=== PATIENT | female | born 1985 | race Caucasian/White ===

== ENCOUNTER → 2023-12-31 11:53 | Outpatient (REF) | payer BC, SELFPAY | LOC: MRI 3T 11:53 | PROVIDERS: ATTENDING PHYSICIAN Nurse Practitioner Family; FAMILY PHYSICIAN Family Medicine | DX: R92.30 Dense breasts, unspecified (principal); Z80.3 Family history of malignant neoplasm of breast | CPT/HCPCS: 77049; A9585 ==

== ENCOUNTER 2024-10-29 17:40 | Emergency (ER) | payer BC, SELFPAY ==
[2024-10-29 17:46] VITALS: BP 139/95
--- NOTE | 2024-10-29 17:46 | ED.GENMED ---
ED Provider Triage
<Vlad Couch PA-C - Last Filed: 10/29/24 17:52>
-
Patient seen by provider in Triage?: Seen in Triage
Attestation: A medical screening examination has been initiated by a qualified medical provider. Based on the assessment performed at this time, it has been determined that an emergent medical condition may exist and the patient has been informed
that further medical evaluation and possible additional diagnostic testing may be needed.
HPI: 39-year-old female presenting to the ER with a little over 1 week of pain to her right groin area that worsens with hip flexion as well as abduction and ambulating. Patient went to urgent care and was recommended to come to the ER for further
evaluation. Pain worse last night and patient did note some swelling to the right lower extremity. Notes no specific injury but does state about 2 days prior she had been doing lunges at the gym and is not sure if this is related. Ultrasound of
the right lower extremity ordered to exclude DVT.
GENERAL: Alert , in no apparent distress
EYE: No visual abnormalities.
NECK: Trachea midline
ENT: No visible abnormalities.
LUNGS: No acute respiratory distress
NEUROLOGICAL: Alert and oriented
SKIN: Skin intact. No visible changes.
MUSCULOSKELETAL: Moving extremities normally
PSYCH: Normal and appropriate interaction.
This is a medical evaluation conducted in person to initiate diagnostic evaluation and provide initial therapeutics. Please see further documentation by the treating clinician.
History of Present Illness
<Vlad Couch PA-C - Last Filed: 10/29/24 17:52>
General
Chief Complaint: Musculo-Skeletal Complaint
Time Seen by Provider: 10/29/24 22:44
<Manda Peña PA-C - Last Filed: 11/01/24 13:00>
General
Source: patient
Exam Limitations: none
Nursing documentation reviewed up to this point in time: agreed with
History of Present Illness
History of Present Illness:
PT IS A 39 Y/O F
healthy
says about 10 days ago she was at the gym and was doing lunges, but didn't have pain, just felt a little sore afterwards
then about 24 hours later started having more signfiicant pain in R inguinal region and around to buttocks
she was able to walk and would take motrin and pain would get better
as the week went on she seemed to get worse but in the past 2 days significantly worse and with swelling in the leg that developed ajit in the R thigh
there is no color change,numbness, tlngling
no back pain, weakness
but pt is unable to actively flex the R leg and cannot plant her foot down due to severe pain
concerned about taking anything more than motrin
Past History
<Vlad Couch PA-C - Last Filed: 10/29/24 17:52>
Past History
ED Past Medical History: Other (History ADHD, urinary tract infection)
ED Past Surgical History: None
Social History
Tobacco: Non-smoker
Alcohol: Occasional
Drug: None
Personal:
Living: with family
Employment: Not employed
Family History
Family History: Other (Noncontributory)
Review of Systems
<Manda Peña PA-C - Last Filed: 11/01/24 13:00>
Review of Systems
Allergies reviewed?: Yes
All Other Systems: Not applicable
Phy Exam
<Manda Peña PA-C - Last Filed: 11/01/24 13:00>
Physical Exam
Physical Exam:
GENERAL: Alert , in no apparent distress, comfortable at rest
HEAD: NCAT
CV: 2+ DP PULSES B/L
regular rate/rhythm
normal femoral and dp pulses;
perfused R leg
NEUROLOGICAL: Alert and oriented, no focal neuro deficits, , 5/5 strength, sensation intact, ambulation slight limp right leg
SKIN: Warm and dry, no color change
even in the R thigh that is moderately swollen there is no ecchymosis or color change
MUSCULOSKELETAL: nontender palpation to R inguinal region, right thigh, right knee right lower leg
unable to actively flex her R hip
PSYCH: Normal and appropriate interaction.
Course
<Vlad Couch PA-C - Last Filed: 10/29/24 17:52>
Orders/Labs/Results
Orders:
Orders
10/29/24 17:47
US Periph Venous LOWER Ext RT Urgent
Comment:
Reason For Exam: pain/swelling
10/29/24 23:15
HYDROmorphone [Dilaudid] 0.25 mg IV NOW STA
10/29/24 23:16
Test Result ONCE
10/29/24 23:32
Complete Blood Count/With Diff Urgent
Comprehensive Metabolic Panel Urgent
HCG, Serum Qualitative Screen Urgent
10/30/24 00:03
CT Lower Ext Angio W/wo Iv Con Urgent
Reason For Exam: severe R inguinal pain with swelling R thigh;
10/30/24 01:55
Knee Immobilizer Right-Treatme ONCE
Abnormal Lab Results
10/29/24
23:32
RBC 4.17 L 10^6/uL
(4.20-5.40)
Hct 36.9 L %
(37.0-47.0)
MPV 10.5 H fL
(7.4-10.4)
10/29/24 23:32
10/29/24 23:32
Vital Signs
Initial and Last Documented VS:
Initial Vital Signs
Temp Pulse Resp BP Pulse Ox
36.6 C 80 16 139/95 100
10/29/24 17:46 10/29/24 17:46 10/29/24 17:46 10/29/24 17:46 10/29/24 17:46
Last Documented Vital Signs
Temp Pulse Resp BP Pulse Ox
36.6 C 85 16 115/74 100
10/29/24 17:46 10/30/24 02:31 10/29/24 21:47 10/30/24 02:31 10/30/24 02:31
<Manda Peña PA-C - Last Filed: 11/01/24 13:00>
Orders/Labs/Results
Orders:
Orders
10/29/24 17:47
US Periph Venous LOWER Ext RT Urgent
Comment:
Reason For Exam: pain/swelling
10/29/24 23:15
HYDROmorphone [Dilaudid] 0.25 mg IV NOW STA
10/29/24 23:16
Test Result ONCE
10/29/24 23:32
Complete Blood Count/With Diff Urgent
Comprehensive Metabolic Panel Urgent
HCG, Serum Qualitative Screen Urgent
10/30/24 00:03
CT Lower Ext Angio W/wo Iv Con Urgent
Reason For Exam: severe R inguinal pain with swelling R thigh;
10/30/24 01:55
Knee Immobilizer Right-Treatme ONCE
Abnormal Lab Results
10/29/24
23:32
RBC 4.17 L 10^6/uL
(4.20-5.40)
Hct 36.9 L %
(37.0-47.0)
MPV 10.5 H fL
(7.4-10.4)
10/29/24 23:32
10/29/24 23:32
Vital Signs
Initial and Last Documented VS:
Initial Vital Signs
Temp Pulse Resp BP Pulse Ox
36.6 C 80 16 139/95 100
10/29/24 17:46 10/29/24 17:46 10/29/24 17:46 10/29/24 17:46 10/29/24 17:46
Last Documented Vital Signs
Temp Pulse Resp BP Pulse Ox
36.6 C 85 16 115/74 100
10/29/24 17:46 10/30/24 02:31 10/29/24 21:47 10/30/24 02:31 10/30/24 02:31
<Son Kelly, DO - Last Filed: 10/30/24 01:58>
Orders/Labs/Results
Orders:
Orders
10/29/24 17:47
US Periph Venous LOWER Ext RT Urgent
Comment:
Reason For Exam: pain/swelling
10/29/24 23:15
HYDROmorphone [Dilaudid] 0.25 mg IV NOW STA
10/29/24 23:16
Test Result ONCE
10/29/24 23:32
Complete Blood Count/With Diff Urgent
Comprehensive Metabolic Panel Urgent
HCG, Serum Qualitative Screen Urgent
10/30/24 00:03
CT Lower Ext Angio W/wo Iv Con Urgent
Reason For Exam: severe R inguinal pain with swelling R thigh;
10/30/24 01:55
Knee Immobilizer Right-Treatme ONCE
Abnormal Lab Results
10/29/24
23:32
RBC 4.17 L 10^6/uL
(4.20-5.40)
Hct 36.9 L %
(37.0-47.0)
MPV 10.5 H fL
(7.4-10.4)
10/29/24 23:32
10/29/24 23:32
Vital Signs
Initial and Last Documented VS:
Initial Vital Signs
Temp Pulse Resp BP Pulse Ox
36.6 C 80 16 139/95 100
10/29/24 17:46 10/29/24 17:46 10/29/24 17:46 10/29/24 17:46 10/29/24 17:46
Last Documented Vital Signs
Temp Pulse Resp BP Pulse Ox
36.6 C 85 16 115/74 100
10/29/24 17:46 10/30/24 02:31 10/29/24 21:47 10/30/24 02:31 10/30/24 02:31
<Manda Peña PA-C - Last Filed: 11/01/24 13:00>
MDM/Problems Addressed
Differential Diagnosis Includes:
inguinal strain, pulled muscle, torn quad, vascular injury
MDM/Problems Addressed:
39y/o F
gradual R inguinal pain
worse with movement
the past 2 days severe
cannot actively flex your
<Son Kelly, - Last Filed: 10/30/24 01:58>
Update Note
Update Note:
1:[address] without significant abnormality. Patient states feels comfortable going home. Discussed follow-up with orthopedics. Will write for pain medicine. She states she has crutches at home
ED Attending Note
<Vlad Couch PA-C - Last Filed: 10/29/24 17:52>
-
Portions of this chart may have been created with voice recognition software.� Occasional wrong word or��sound alike� substitutions may have occurred due to the inherent limitations of voice recognition software.
<Son Kelly, - Last Filed: 10/30/24 01:58>
ED Attending Note
Patient seen and examined by attending physician: Yes
I performed the substantive portion of visit, reviewed & personally made and approve the management plan that is documented in note by myself or NEAL.: Yes
ED Attending Note:
I have seen and evaluated the patient with a [id number] encounter. I have spoken to the advance practicer provider and involved in the medical history, the physical exam, medical decision making.
Evaluation and management service: agree unless noted differently below.
Results interpretation: agree unless noted differently below.
Focused HPI: 39-year-old female presenting with right thigh pain. Patient injured her thigh while she was at the gym. Since then, she has been having trouble walking and having trouble with hip flexion
Physical exam: Edema noted to right thigh without skin changes. Patient unable to flex hip. Distal extremity neurovascular intact
Medical Decision Making: We discussed likely quadricep tear at origin. Will obtain CT to rule out any active bleeding given the edema. Patient will ultimately require MRI and ortho eval
Discharge Plan
Departure
Patient Disposition: Home (Routine Discharge)
Date of Disposition: 10/30/24
Time of Disposition: :55
Patient with high blood pressure during this ER visit?: No
Discharge Problem:
Quadriceps muscle strain
Prescriptions:
New
diclofenac potassium 50 mg tablet
50 mg PO BID Qty: 20 0RF
oxycodone 5 mg tablet
5 mg PO Q8H PRN (Reason: Pain) Qty: 14 0RF
metaxalone 800 mg tablet
800 mg PO TID PRN (Reason: muscle pain) Qty: 14 0RF
No Action
Vyvanse 40 mg Capsule
40 mg PO DAILY
Patient Comments:
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
dextroamphetamine-amphetamine 10 mg tablet
10 mg PO DAILYPRN PRN (Reason: focus)
Patient Comments:
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
famotidine [Pepcid] 20 mg Tablet
20 mg PO DAILYPRN PRN (Reason: gerd)
calcium carbonate [Tums] 200 mg calcium (500 mg) Tablet,Chewable
200 mg PO BIDPRN PRN (Reason: gerd)
Mounjaro 2.5 mg/0.5 mL Pen Injector
2.5 mg SC QWEEK
Patient Comments:
11/08/22-patient said she lost too much weigth so she held this for a couple of weeks
acetaminophen [acetaminophen] 325 mg tablet
650 mg PO Q6HPRN PRN (Reason: mild pain) Qty: 14 0RF
ibuprofen 200 mg tablet
400 - 600 mg PO Q6HPRN PRN (Reason: moderate pain) Qty: 1 0RF
oxycodone 5 mg tablet
5 mg PO Q6HPRN PRN (Reason: breakthrough/severe pain) Qty: 8 0RF
Referrals:
Elias Arciniega DO [Family Provider] -
Fede Medrano MD [Active] -
Activity Restrictions/Additional Instructions:
Please return for any worsening symptoms.
You may return at any time if you have further concerns.
Please follow up with your doctor at the first available appointment, preferably this week.
Please make an appointment to see the orthopedist.
You were given a prescription for narcotics. If you require this pain medicine, please take a daily [id number] stool softener to avoid constipation.
Thank you for choosing [facility].
Interventions
Interventions:
*Risk Screen - Suicide Last Done: 10/29/24 17:46
*General Assessment Last Done: 10/29/24 21:47
*Neglect/Abuse Screening Last Done: 10/29/24 17:46
ED- Fall Risk Assessment Last Done: 10/29/24 21:47
*ED COVID-19 Vaccine History Last Done: 10/29/24 21:47
*Nursing Disposition Last Done: 10/30/24 02:34
ED-Musculoskeletal Assessment Last Done: 10/29/24 21:47
Discharge Date and Time
Discharge Date/Time: 10/30/24 02:35
Print Language: LIBYAN
[2024-10-29 21:47] VITALS: BP 133/91; BMI 29.7
[2024-10-29] MEDS: DILAUDID 0.25 MG IV (23:36)
[2024-10-30 00:06] LABS: % Basophils 0.3 % (0-2); % Eosinophils 0.9 % (0-6); % Immature Granulocytes 0.3 % (0-0.5); % Lymphocytes 38.6 % (20.5-51.1); % Monocytes 4.7 % (1.7-9.3); % Neutrophils 55.2 % (42.2-75.2); Absolute Eosinophils 0.1 10^3/uL (0-0.7); Absolute Lymphocytes 2.9 10^3/uL (1.2-3.4); Absolute Monocytes 0.4 10^3/uL (0.1-0.6); Absolute Neutrophils 4.2 10^3/uL (1.4-6.5); Hematocrit 36.9 % (37.0-47.0); Hemoglobin 12.3 g/dL (12.0-16.0); Mean Corp Hgb Conc. 33.3 g/dL (33.0-37.0); Mean Corpuscular Hgb 29.5 pg (27.0-31.0); Mean Corpuscular Volume 88.5 fL (81.0-99.0); Mean Platelet Volume 10.5 fL (7.4-10.4); Nucleated Red Blood Cells % 0 %; Platelet Count 208 10^3/uL (130-400); Red Blood Cell Count 4.17 10^6/uL (4.20-5.40); Red Cell Dist. Width 13.1 % (11.5-14.5); White Blood Cell Count 7.5 10^3/uL (4.8-10.8)
[2024-10-30 00:08] LABS: HCG, Serum Qualitative Screen Negative
[2024-10-30 00:16] LABS: ALT (SGPT) 11 U/L (0-35); AST (SGOT) 17 U/L (14-36); Albumin 3.9 g/dl (3.5-5.0); Alkaline Phosphatase 62 U/L (38-126); Blood Urea Nitrogen 13 mg/dl (7-17); Calcium 8.8 mg/dl (8.4-10.2); Carbon Dioxide 27 mmol/L (22-30); Chloride 103 mmol/L (98-107); Estimated Creatinine Clearance 107 ml/min; Glucose 94 mg/dl (70-99); Potassium 3.9 mmol/L (3.5-5.1); Sodium 138 mmol/L (135-145); Total Bilirubin 0.5 mg/dl (0.2-1.3); Total Protein 6.6 g/dl (6.3-8.2); eGFR > 60.00
[2024-10-30 02:31] VITALS: BP 115/74
== END 2024-10-30 02:35 | disposition home or self-care (01) ==
LOC: EMR 17:40
PROVIDERS: Physician Assistant; EMERGENCY PHYSICIAN Student in an Organized Health Care Education/Training Program; FAMILY PHYSICIAN Family Medicine
DX: S76.111A Strain of right quadriceps muscle, fascia and tendon, initial encounter (principal); R26.2 Difficulty in walking, not elsewhere classified; M79.604 Pain in right leg; R10.31 Right lower quadrant pain; X58.XXXA Exposure to other specified factors, initial encounter; M79.89 Other specified soft tissue disorders; F90.9 Attention-deficit hyperactivity disorder, unspecified type; Z87.440 Personal history of urinary (tract) infections
CPT/HCPCS: 99284; 96374; 73706; 80053; 84703; 85025; 93971; Q9967

== ENCOUNTER → 2024-11-11 08:22 | Outpatient (REF) | payer BC, SELFPAY | LOC: HWWDC 08:22 | PROVIDERS: ATTENDING PHYSICIAN Nurse Practitioner Family; FAMILY PHYSICIAN Family Medicine | DX: Z12.31 Encounter for screening mammogram for malignant neoplasm of breast (principal) | CPT/HCPCS: 77063; 77067 ==